=== PATIENT | male | born 1975 | race Caucasian/White ===

== ENCOUNTER 2024-11-12 16:06 | Emergency (ER) | payer OTHER, SELFPAY ==
[2024-11-12 16:07] VITALS: BP 168/94
--- NOTE | 2024-11-12 17:21 | ED.SKININJ ---
HPI-Injury
General
Chief Complaint: Bite
Source: patient
Time Seen by Provider: 11/12/24 17:11
History of Present Illness-Injury
Initial Injury comments:
49-year-old male presents to the emergency room complaining of dog bite. 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 He sustained 2 bites
to the right posterior thigh and 1 to the left. The home intermodal owner operator truck driver states that the dog is immunized but did not provide any documentation. Patient went to a urgent care who then referred him to the emergency room for rabies vaccination and treatment.
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 As far as he knows the dog will remain at the home. Patient does not recall when his last tetanus shot was.
Past History
Past History
ED Past Medical History: None and Other (Inguinal hernia repair, melanoma 2007, hypertension)
ED Past Surgical History: None
Social History
Tobacco: Non-smoker
Alcohol: None
Personal:
Living: with family
Employment: Employed
Family History
Family History: CAD and Other (Mother with lung cancer)
Phy Exam
Physical Exam
Physical Exam:
General: Awake, Alert, Oriented X3. No acute distress.
Vitals: unremarkable
Head: Atraumatic
Eyes: Pupils equal, EOMI
Throat: Airway intact, no exudates
Neck: Trachea midline
Neuro: Nonfocal
Skin: Warm, dry, no rash
Extremities: pulses equal b/l, no edema. Linear abrasion right posterior thigh approximately 8 cm in length with ecchymosis towards the proximal end. Left thigh there are 2 areas of erythema indicating a potential bite but no real break in the
skin.
Course
Orders/Labs/Results
Orders:
Orders
11/12/24 17:27
Amoxicillin 875 mg/Clav 125 mg [Augmentin 875 mg/125 mg] 1 tablet PO NOW STA
Tetanus/Diphth/Acelpertussis [Adacel] 0.5 ml IM .ONCE ONE
Vital Signs
Initial and Last Documented VS:
Initial Vital Signs
Temp Pulse Resp BP Pulse Ox
97.8 F 88 16 168/94 99
11/12/24 16:07 11/12/24 16:07 11/12/24 16:07 11/12/24 16:07 11/12/24 16:07
Last Documented Vital Signs
Temp Pulse Resp BP Pulse Ox
97.8 F 88 16 168/94 99
11/12/24 16:07 11/12/24 16:07 11/12/24 16:07 11/12/24 16:07 11/12/24 16:07
MDM/Problems Addressed
MDM/Problems Addressed:
We will update the patient's tetanus and provide a course of Augmentin to reduce the risk of infection though this is already unlikely particularly as he was bit through his pants. Seems like a very low risk for rabies. I explained to the patient
that it is not mandatory he received rabies treatment at this time if the dog is going to be observable over the next 2 weeks. Patient will contact his gelatin plant supervisor to see if the company is going to remain in contact with the dog intermodal owner operator truck driver to ensure is
healthy over the next 2 weeks.
*Critical Care Note
Total Time (30-74mins, 75-104mins- exclusive of procedures): Not Applicable
ED Attending Note
-
Portions of this chart may have been created with voice recognition software.� Occasional wrong word or��sound alike� substitutions may have occurred due to the inherent limitations of voice recognition software.
Discharge Plan
Departure
Patient Disposition: Home (Routine Discharge)
Date of Disposition: 11/12/24
Time of Disposition: 17:46
Patient with high blood pressure during this ER visit?: Yes
Condition: Good
Discharge Problem:
Dog bite of multiple sites of lower extremity
Instructions: Animal Bites (DC), BLOOD PRESSURE
Prescriptions:
No Action
metoprolol succinate 50 MG tablet extended release 24 hr
50 mg PO HS
prednisolone acetate 1 DROP drops,suspension
1 drp RIGHT EYE BID
erythromycin 1 GM ointment
1 applic RIGHT EYE BID
loratadine 10 MG tablet
10 mg PO HS
nifedipine 30 MG tablet extended release
30 mg PO DAILY Qty: 30 0RF
amoxicillin-pot clavulanate 1 TABLET tablet
1 tab PO TID Qty: 15 0RF
Referrals:
Sigrid Dorado CRNP [Family Provider] -
Activity Restrictions/Additional Instructions:
The Zithromax you are taking is adequate coverage to prevent infection. Return to the ER if the dog shows signs of illness. You can apply [id number] antibiotic ointment to the wound for the next few days.
Interventions
Interventions:
*Risk Screen - Suicide Last Done: 11/12/24 16:07
*General Assessment Last Done: 11/12/24 16:07
*Neglect/Abuse Screening Last Done: 11/12/24 16:07
*ED COVID-19 Vaccine History Last Done: 11/12/24 16:07
*Nursing Disposition Last Done: 11/12/24 18:24
ED-Skin Assessment Last Done: 11/12/24 17:49
Discharge Date and Time
Discharge Date/Time: 11/12/24 18:24
Print Language: DUTCH
[2024-11-12] MEDS: ADACEL 0.5 ML IM (18:00)
== END 2024-11-12 18:24 | disposition home or self-care (01) ==
LOC: EMR 16:06
PROVIDERS: EMERGENCY PHYSICIAN Emergency Medicine; FAMILY PHYSICIAN Nurse Practitioner Adult Health
DX: S70.372A Other superficial bite of left thigh, initial encounter (principal); S70.311A Abrasion, right thigh, initial encounter; W54.0XXA Bitten by dog, initial encounter; Y99.0 Civilian activity done for income or pay; I10 Essential (primary) hypertension; Z23 Encounter for immunization
CPT/HCPCS: 90471; 99283; 90715

== ENCOUNTER 2025-03-27 06:13 | Day surgery (SDC) | payer BC, SELFPAY ==
[2025-03-27] VITALS (11 sets, daily range): BP systolic 88–146; BP diastolic 51–88; BMI 44.5
[2025-03-27] MEDS: NORMOSOL-R/PLASMALYTE-A 1000 IV (08:40)
== END 2025-03-27 13:09 | disposition home or self-care (01) ==
LOC: SDS 06:13
PROVIDERS: ATTENDING PHYSICIAN Otolaryngology
DX: H72.92 Unspecified perforation of tympanic membrane, left ear (principal)
CPT/HCPCS: 69631; C1763

== ENCOUNTER 2025-03-31 06:26 | Day surgery (SDC) | payer BC, SELFPAY | END 2025-03-31 11:33 | disposition home or self-care (01) | LOC: GI 06:26 | PROVIDERS: ATTENDING PHYSICIAN Internal Medicine | DX: Z12.11 Encounter for screening for malignant neoplasm of colon (principal); D12.3 Benign neoplasm of transverse colon; K57.30 Diverticulosis of large intestine without perforation or abscess without bleeding; K64.9 Unspecified hemorrhoids; Z86.0101 Personal history of adenomatous and serrated colon polyps | CPT/HCPCS: 45385; 88305 ==